=== PATIENT | female | born 1965 | race Two or more races ===

== ENCOUNTER 2021-11-06 11:20 | Emergency (ER) | payer OTHER ==
[~2021-11-06] VITALS: Ht 162.6 cm; Wt 56.8 kg
[2021-11-06 12:09] VITALS: BP 138/75
[2021-11-06 12:42] LABS: COVID AG,FIA SOURCE NASOPHARYNGEAL
== END 2021-11-06 12:41 | disposition home or self-care (01) ==
LOC: EMS 11:44
DX: Z20.822 Contact with and (suspected) exposure to COVID-19 (principal); E11.9 Type 2 diabetes mellitus without complications
CPT/HCPCS: 99283